=== PATIENT | female | born 1945 | race Asian ===

== ENCOUNTER → 2020-02-22 | Outpatient (CLI) | payer MEDICARE ==
[~2020-02-22] VITALS: Ht 142.2 cm; Wt 40.5 kg
[~2020-02-22] MED LIST: NATURAL IRON65 MG PO
[2020-02-22 12:16] VITALS: BP 101/70; PULSE 100
--- NOTE | 2020-02-22 13:00 | NUR ---
Dr Bright in to talk with pt and daughter. Procedure canceled. Dr Bright states he does not change them until [address] Bright will talk to Dr Singh regarding pt. Dr Bright changed out drainage back and this nurse cleanded and applied new opsites to the bilateral nephrostomy tubes. Attempting to get images from [facility] in [place] [phone]. Also attempting to get images from Dr Bennett office. Number for rad nurses given to daughter to follow up regarding appt time for her mother in the end of February beginning of March.
== END ==
LOC: COL.RAD 11:58
DX: Z46.6 Encounter for fitting and adjustment of urinary device (principal)
CPT/HCPCS: 32174

== ENCOUNTER → 2020-04-05 | Outpatient (CLI) | payer MEDICARE ==
[2020-04-05] VITALS (18 sets, daily range): BP systolic 103–134; BP diastolic 65–79; PULSE 59–69
[~2020-04-05] VITALS: Ht 142.2 cm; Wt 41.5 kg
[~2020-04-05] MED LIST changes: +FOSAMAX 70MG TA70 MG PO; +LIPITOR 10MG10 MG PO; +TENORMIN 2525 MG/TAB PO
--- NOTE | 2020-04-05 12:15 | NUR ---
pt into radiology procedure room. Pt positioned in prone position on table. Monitors applied and O2 on at 2l/nc.
--- NOTE | 2020-04-05 12:50 | NUR ---
Dr Bright into room. Pt prepped and draped. Time out completed. 2434 Procedure started on right side.
--- NOTE | 2020-04-05 13:05 | NUR ---
Dr Bright completed the exchange of the right nephrostomy tube placement.
--- NOTE | 2020-04-05 13:15 | NUR ---
Dr Bright moves to pts left side to exchange left nephrostomy tube.
--- NOTE | 2020-04-05 13:20 | NUR ---
Left side nephrostomy tube exchange started.
--- NOTE | 2020-04-05 13:40 | NUR ---
Left nephrostomy tube exchange completed. Dressings applied bilaterally by Dr Bright.
--- NOTE | 2020-04-05 13:45 | NUR ---
pt transported to holding area in wheelchair. Report to Zora FARMER, care assumed.
--- NOTE | 2020-04-05 15:12 | NUR ---
PORT FLUSHED WITH 10 ML NS AND HEPARIN FLUSHED INSTILLED INTO PORT
== END ==
LOC: COL.RAD 10:00
DX: C67.9 Malignant neoplasm of bladder, unspecified (principal)
CPT/HCPCS: C1729; J3010; Q9967

== ENCOUNTER 2020-04-18 09:00 | Outpatient (RCR) | payer MEDICARE ==
[~2020-04-18] VITALS: Ht 142.2 cm; Wt 39.4 kg
[2020-04-18 09:17] VITALS: BP 129/80; PULSE 110; TEMP 97.4
[2020-04-18 11:50] VITALS: BP 122/78; PULSE 100; TEMP 98
[2020-04-18 12:11] VITALS: BP 119/72; PULSE 94; TEMP 98.4
[2020-04-18 12:26] VITALS: BP 118/95; PULSE 95; TEMP 97.6
[2020-04-18 12:56] VITALS: BP 121/72; PULSE 89; TEMP 98.1
[2020-04-18 13:56] VITALS: BP 135/78; PULSE 97; TEMP 98.7
== END 2020-04-18 14:20 | disposition home or self-care (01) ==
LOC: EUO 09:00 → EDSTATUS 10:30 → EUO 10:30
DX: D50.9 Iron deficiency anemia, unspecified (principal)
CPT/HCPCS: J1644; J7050; P9016

== ENCOUNTER 2020-04-26 05:44 | Inpatient (IN) | payer MEDICARE, OTHER ==
[~2020-04-26] VITALS: Ht 152.4 cm; Wt 36.4 kg
[2020-04-26 06:47] LABS: INR 1.1 (0.8-3.0); PROTHROMBIN TIME 11.8 SECONDS (9.7-12.8)
[2020-04-26 06:49] LABS: MEAN CELL VOLUME 84 fl (80.0-100.0); MEAN CORPUSCULAR HGB CONC 32 g/dl (33.0-37.0); MEAN PLATELET VOLUME 8.3 fl (7.4-10.4); PLATELET COUNT 280 K/mm3 (130-400); RED BLOOD COUNT 3.12 M/mm3 (4.10-5.30); REDCELL DISTRIBUTION WIDTH-CV 18.1 % (11.5-14.5)
[2020-04-26 06:50] LABS: PARTIAL THROMBOPLASTIN TIME 30.7 SECONDS (26.0-37.0)
[2020-04-26 06:51] LABS: ALBUMIN 2.6 gm/dL (3.5-5.0); BILIRUBIN,TOTAL 0.5 mg/dL (0.0-1.0); CALCIUM 8.1 mg/dL (8.4-10.2); CREATININE, serum 0.79 (0.52-1.25); MAGNESIUM 1.9 mg/dL (1.6-2.3); TOTAL PROTEIN 5.8 gm/dL (6.4-8.2)
[2020-04-26 06:58] LABS: HEMATOCRIT 26.3 % (37.0-47.0); HEMOGLOBIN 8.3 g/dl (12.5-16.0); MEAN CORPUSCULAR HEMOGLOBIN 27 pg (27.0-31.0)
[2020-04-26 07:03] LABS: TROPONIN-I 0.018 ng/mL (0.000-0.035)
[2020-04-26 07:05] LABS: COLLECTION METHOD CLEAN CATCH
[2020-04-26 07:21] LABS: THYROID STIMULATING HORMONE 1.63 uIU/mL (0.465-4.680)
[2020-04-26 08:03] LABS: SQUAMOUS EPITHELIAL None Seen /hpf; URINE BACTERIA None Seen /hpf; URINE RBC >50 /hpf
[2020-04-26 08:07] LABS: BAND 27 % (0-10); EOSINOPHIL 1 % (0-4); LYMPHOCYTE 23 % (20.0-51.0); METAMYELOCYTE 1 % (0-0); NEUTROPHILS 48 % (42.0-75.2); PLATELET ESTIMATE NORMAL (NORMAL)
[2020-04-26 08:35] LABS: COLLECTION METHOD IN
[2020-04-26 08:54] LABS: MUCOUS Present /lpf; PH 5 (5-8); SQUAMOUS EPITHELIAL None Seen /hpf; URINE APPEARANCE Turbid; URINE BACTERIA None Seen /hpf; URINE BILIRUBIN Negative (NEGATIVE); URINE BLOOD 2+ (NEGATIVE); URINE GLUCOSE Negative (NEGATIVE); URINE KETONE Negative (NEGATIVE); URINE LEUKOCYTE ESTERASE 3+ (NEGATIVE); URINE NITRATE Negative (NEGATIVE); URINE PROTEIN(semi-quant) 2+ (NEGATIVE); URINE UROBILINOGEN Negative (NEGATIVE)
[2020-04-26 08:55] LABS: URINE APPEARANCE Cloudy; URINE COLOR OTHER
[2020-04-26 08:58] LABS: URINE COLOR Amber
[2020-04-26] MEDS ORDERED: TENORMIN 2525 MG/TAB PO (10:59)
[2020-04-26] MEDS ORDERED: MIRALAX PA17 GM/Dose PO (11:58)
[2020-04-26 16:17] VITALS: BP 100/63; PULSE 84; TEMP 98.1
--- NOTE | 2020-04-26 18:56 | NUR ---
Pt bladder scanned, 319mls in place. Pt straight cathed at this time using sterile technique, 250mls of pulliam/black turbid urine drained. Pt tolerated well. Neph tubes to bilateral sides drained, cloudy yellow urine present. Pt has been eating without issues. IVF infusing to RFA. Daughter did state patient has a PAC if IV sites or blood draws become an issue. POC discussed with patient and her daughter. Report given to night nurse Christina at this time.
--- NOTE | 2020-04-26 19:15 | NUR ---
Report received from MARLENY Leonard. Pt resting in bed, denies needs at this time.
[2020-04-26 20:11] VITALS: BP 93/56; PULSE 92; TEMP 97.5
--- NOTE | 2020-04-26 22:56 | NUR ---
Assessment completed. Pt resting in bed, daughter at bedside. Nephrostomy tubes in place bilaterally, drainage pale yellow and clear. Bowel sounds hypoactive all quadrants. Abdomen soft and flat, no tenderness or guarding. INT to right forearm intact, flushes easily. IV to right forearm intact, NS running at 100 ml/hr. Scabbed over cut on forehead. Pt denies pain or other concerns at this time. Will continue to monitor.
[2020-04-27 00:17] VITALS: BP 86/52; PULSE 92; TEMP 97.7
--- NOTE | 2020-04-27 02:00 | NUR ---
Bladder scan done, 102 ml residual detected.
[2020-04-27 05:02] VITALS: BP 112/64; PULSE 94; TEMP 98
--- NOTE | 2020-04-27 05:22 | NUR ---
Pt has been sleeping in room throughout shift. No complaints of pain or other concerns during the night. Bladder scan completed at 0200, residual 102 ml.
[2020-04-27 06:09] LABS: MEAN CELL VOLUME 86 fl (80.0-100.0); MEAN CORPUSCULAR HGB CONC 31 g/dl (33.0-37.0); MEAN PLATELET VOLUME 8.2 fl (7.4-10.4); PLATELET COUNT 243 K/mm3 (130-400); REDCELL DISTRIBUTION WIDTH-CV 18.5 % (11.5-14.5)
[2020-04-27 06:10] LABS: HEMATOCRIT 26.5 % (37.0-47.0); HEMOGLOBIN 8.3 g/dl (12.5-16.0); MEAN CORPUSCULAR HEMOGLOBIN 27 pg (27.0-31.0)
[2020-04-27 06:23] LABS: ANISOCYTOSIS 1+; BAND 45 % (0-10); EOSINOPHIL 2 % (0-4); LYMPHOCYTE 12 % (20.0-51.0); NEUTROPHILS 36 % (42.0-75.2); PLATELET ESTIMATE NORMAL (NORMAL)
[2020-04-27 06:32] LABS: ALBUMIN 2.2 gm/dL (3.5-5.0); BILIRUBIN,TOTAL 0.2 mg/dL (0.0-1.0); CALCIUM 7.2 mg/dL (8.4-10.2); CREATININE, serum 0.53 (0.52-1.25); MAGNESIUM 1.9 mg/dL (1.6-2.3); PHOSPHOROUS 2.3 mg/dL (2.5-4.5); TOTAL PROTEIN 5.2 gm/dL (6.4-8.2)
[2020-04-27 07:25] VITALS: BP 103/63; PULSE 93; TEMP 97.8
--- NOTE | 2020-04-27 09:01 | NUR ---
Pt assessment complete. Pt is laying in bed upon entry, she is alert but does not speak good japanese. Pt reports pain to her bladder and Left leg, daughter reports chronic pain d/t cancer. Daughter reports patient did not want to eat much for breakfast but did eat a few bites. Had a large watery BM this am, dark in color. Bilateral neph tubes in place, draining cloudy yellow urine. R side leaking, new dressing placed. IVf infusing without complications. No needs at this time. Call light within reach.
--- NOTE | 2020-04-27 09:59 | NUR ---
Initial visit; Patient and daughter were receptive to prayer this morning. Aging Department Supervisor prayed and offered comfort and Blessings.
[2020-04-27 12:13] VITALS: BP 106/74; PULSE 88; TEMP 98
--- NOTE | 2020-04-27 12:22 | NUR ---
Bladder scan showed 211mls.
--- NOTE | 2020-04-27 15:29 | NUR ---
Architectural Practice Manager met with patient and patient's daughter, Gena (ph#[phone]) who is at bedside to discuss discharge planning. Patient lives alone in [place] and recently moved to [place] about a month ago. Gena advised that although patient lives home alone, she checks in on patient 2-3 times per day and stays overnight as needed. Patient's new primary care physician is Dr. Barriga and her first appointment with Dr. Barriga is coming up next week. Patient obtains medications from [facility]. Patient has a cane, walker, and wheelchair at home. At this time, patient has not been able to walk much. Patient receives assistane with bathing and dressing from Gena. NELI reviewed recommendation for post acute rehab. Gena advised that patient sees Dr. Delgado and receives chemotherapy once a week. At this time, the plan is to continue with chemotherapy and Gena advised that they would not be able to put off chemotherapy, even for a short amount of time. Gena was hopeful that Home Health Services could be set up for patient. NELI presented Medicare.gov list of agencies and patient and Gena selected [facility]. NELI also provided information about private duty services. Gena does not think private duty services may be necessary at this time. Gena provided copy of DPOA- which designates her. NELI placed copy in patient's chart. NELI contacted Karla at [facility] and faxed referral. NELI will continue to follow.
[2020-04-27 17:05] VITALS: BP 105/74; PULSE 85; TEMP 97.8
--- NOTE | 2020-04-27 19:00 | NUR ---
Pt had uneventful day. Was up ambulating with PT. Dressings to bilateral neph tubes changed. 18FR jade placed, pulliam cloudy urine present. IVF infusing without complications. Daughter at bedside. Report given to Mitchell Barajas.
[2020-04-27 19:06] VITALS: BP 138/77; PULSE 95; TEMP 98.2
--- NOTE | 2020-04-27 19:08 | NUR ---
Report received from MARLENY Leonard. Pt resting in room with daughter at bedside. Denies needs at this time.
--- NOTE | 2020-04-27 21:31 | NUR ---
Assessment completed. Pt resting in bed, daughter at bedside. Bruise noted on back of pt's head, pt reports due to fall prior to admission. Bilateral nephrostomy tubes in place, output clear yellow. De Leon catheter in place, output dark green and thick. IV to right forearm intact, NS running at 100 ml/hr. INT to right forearm intact, flushes easily. Left chest port intact, deaccessed, dressing clean dry intact. Pt denies pain or other needs at this time. Pt has generalized weakness, hand scrap wheeler equal. No other abnormal findings noted.
[2020-04-28 00:17] VITALS: BP 127/82; PULSE 90; TEMP 98.3
[2020-04-28 04:00] VITALS: BP 113/69; PULSE 89; TEMP 99.1
--- NOTE | 2020-04-28 05:34 | NUR ---
Pt sleeping in room, daughter asleep at bedside throughout shift. Pt has called out to nurse's station a few times requesting nephrostomy tubes be emptied due to feeling heaviness at insertion sites, drainage bags emptied several times throughout night. Small amount of dark green, thick drainage noted from De Leon. IV antibiotics administered as ordered. Pt denies pain.
[2020-04-28 07:34] LABS: MEAN CELL VOLUME 87 fl (80.0-100.0); MEAN CORPUSCULAR HGB CONC 31 g/dl (33.0-37.0); MEAN PLATELET VOLUME 8.3 fl (7.4-10.4); PLATELET COUNT 263 K/mm3 (130-400); RED BLOOD COUNT 2.99 M/mm3 (4.10-5.30); REDCELL DISTRIBUTION WIDTH-CV 18.8 % (11.5-14.5)
[2020-04-28 07:38] LABS: HEMATOCRIT 26.1 % (37.0-47.0); MEAN CORPUSCULAR HEMOGLOBIN 27 pg (27.0-31.0)
[2020-04-28 07:50] LABS: CALCIUM 7.3 mg/dL (8.4-10.2); CREATININE, serum 0.49 (0.52-1.25); POTASSIUM 3.9 mmol/L (3.4-5.0)
[2020-04-28 07:51] VITALS: BP 123/80; PULSE 95; TEMP 98.2
[2020-04-28 09:02] LABS: BAND 23 % (0-10); EOSINOPHIL 1 % (0-4); LYMPHOCYTE 12 % (20.0-51.0); NEUTROPHILS 63 % (42.0-75.2); PLATELET ESTIMATE NORMAL (NORMAL)
[2020-04-28 09:03] LABS: ANISOCYTOSIS 1+; HYPOCHROMIA 1+
--- NOTE | 2020-04-28 09:51 | NUR ---
Gena, pt's daughter, at bedside. Dr. Bucio and team rounded and reviewed pt's status. Discussed antibiotic tx. Goals of care-Maddy Fabian RN present. Chemo Tx being held during stay. Discussed discharge needs.
--- NOTE | 2020-04-28 10:59 | NUR ---
Met with patient and her daughter this morning along with Dr Bucio and treatment team and then Radha LOPEZ and I met with them following. Dr Delgado should see them tomorrow to help them clarify they goals of care. Pt had been recieving chemotherapy weekly with TAXOL/CARBOPLATIN with last dose given April 11. Initial plan of care with MD Mayberry was to treat the bladder cancer with chemotherapy and shrink it so that it could be removed and and an ostomy placed but now with blood clot and with infection, the situation is more complicated. Daughter is very clear that her mother wants to be at home and wants to be comfortable. Goals of care are significant and need clarification, hopefully with help from her oncologist, whether she is desiring ongoing treatment (Trying to get better) or if she is wanting to be kept comfortable without cancer treatment. General information about both was provided and we will wait to hear what they determine their goal to be.
[2020-04-28 12:00] VITALS: BP 116/78; PULSE 92; TEMP 97.4
--- NOTE | 2020-04-28 13:49 | NUR ---
Aesthetics Instructor attended clinical rounds with the team and patient's daughter, Gena is at bedside. Hospitalist to consult Dr. Delgado. Following rounds, SW met with patient, Gena, and Palliative RN Maddy. Goals of care were reviewed and Gena advised they will speak with Dr. Delgado then make decisions on what direction to take. NELI advised Gena that [facility] can accept referral. Maddy also reviewed Hospice options with Gena and patient. Being home is important to patient. Gena is open to home hospice if they decide to stop chemotherapy. Gena will provide in home supports for patient upon discharge. Gena advised she has other supports from family and friends that can provide her a break when needed. SW will continue to follow.
--- NOTE | 2020-04-28 14:21 | NUR ---
Pt assessment completed and charted. Pt laying in bed with daughter at bedside. pt is A&O, daughter assists in communication/language barriers. Pt has IVF infusing to RFA IV w/o complications. Pt has second RFA INT IV, flushes w/o complications. Hep gtt started at 6.5ml/hr. Labs drawn prior. Pt on room air, breathing even and unlabored, denies SOB. Bilateral nephro tubes in place, no drainage noted, dressings CDI. Dr. Bright consulted for advancement/replacement, will complete 04/29. Pulses strong bilaterally. Pt complains of Lt leg pain and pain bilaterally to nephro tubes area, denies need for pain medication. Toby hose applied to LLE. De Leon catheter draining green fluid, irrigated, repositioned, draining pink/red tinged fluid, small clots removed. Pt bladder scanned, 70ml in bladder. No further needs expressed by patient or daughter at this time.
[2020-04-28 16:51] VITALS: BP 133/82; PULSE 93; TEMP 98.2
[2020-04-28 19:03] VITALS: BP 115/84; PULSE 96; TEMP 98.4
--- NOTE | 2020-04-28 19:30 | NUR ---
Pt had uneventful day, will have nephro tube advancement/replacement w/ Ivester in morning, does not need to be NPO. Will stop hep gtt 2 hrs prior to procedure. Hep Xa drawn @ 6hrs, 0.25, hep gtt rate increased to 7.5ml/hr. Nephro tubs drained, cloudy yellow, no drainage noted to dressings, CDI. Report given to MARLENY Garcia. All questions answered. De Leon draining pink/light red tinged urine at this time.
--- NOTE | 2020-04-28 22:53 | NUR ---
PT IN BED WITH HOB ELEVATED TO 60 DEGREE ANGLE, A/O X4, PLEASANT, AND COOPERATIVE. DENIES PAIN OR DISCOMFORT AND REFUSES A NIGHT TIME SNACK. PT HAS CALL LIGHT WITHIN REACH.
[2020-04-29] VITALS (9 sets, daily range): BP systolic 114–140; BP diastolic 68–82; PULSE 84–94; TEMP 97.8–98.7
--- NOTE | 2020-04-29 06:16 | NUR ---
PT RESTED WELL WITH HOB ELEVATED TO 15 DEGREE ANGLE. PT DENIED PAIN OR DISCOMFORT FOR MOST OF THE NIGHT, BUT THIS AM PT STATED THAT RIGHT BUTTOCK HURTED. PT WAS OFFERED TO BE REPOSITION BUT SHE DECLINED THE FIRST FEW TIMES. DID APPLY BARRIER CREAM TO BUTTOCK AND PLACED PT TO LEFT SIDE OFF BUTTOCK. NO OPEN AREAS OR REDNESS NOTED. PT HAS CALL LIGHT WITHIN REACH.
[2020-04-29 07:53] LABS: CALCIUM 7.8 mg/dL (8.4-10.2); CREATININE, serum 0.49 (0.52-1.25)
[2020-04-29 07:57] LABS: POTASSIUM 3.3 mmol/L (3.4-5.0)
--- NOTE | 2020-04-29 08:13 | NUR ---
This nurses orientee MARLENY Thomas providing pt care today.
--- NOTE | 2020-04-29 08:18 | NUR ---
hep gtt stopped at 0715, 2 hrs prior to procedure w/ Dr. Bright to replace/reposition nephro tubes. Pt had two RFA IVs, one removed, catheter was coming out. Other IV site, patent, no issues. No other concerns.
--- NOTE | 2020-04-29 11:03 | NUR ---
Conversation with daughter Gena in room before pt returned from nephrostomy procedure. Gena has looked at a variety of options. She is concerned that chemotherapy is weakening her mother and is not sure how well she will tolerate chemotherapy in future but also not sure she is ready to stop treatment. Pt states that she very much is wanting to go home if at all possible. We are waiting to hear from Dr Delgado about chemotherapy plan, daughter states she has 4 more treatments ahead of her. Her last treatment was April 11. She does agree to continue with antibiotics whichever way she goes and will start oral anticogulant as well to prevent further clots. She is aware that her risk of bleeding will increase with anticoagulation.Patient and her daughter will continue discussions to help clarify their goals of care. Support provided.
--- NOTE | 2020-04-29 11:18 | NUR ---
Pt back from procedure, tolerated well. Nephro tubes not replaced. Dressing CDI. Hep gtt dc'd, eliquis started. Toby anaya on bilateral LE. No further needs at this time.
--- NOTE | 2020-04-29 11:21 | NUR ---
Assessment charted. Pt reports general "aching feeling" all over, denies pain in the left lower extremity but does report weakness. MARILEE hose are on. Heart and Lung sounds are normal. Pt denies any chest pain or shortness of breath. IV site on right forearm was removed. Other R forearm IV still in place and flushes easily. repositioned with pillows, pt resting comfortably.
--- NOTE | 2020-04-29 12:08 | NUR ---
I recieved a call from Dr Delgado's nurse that he had seen the patient this morning and that their conversation had been toward continuing chemotherapy after antibiotics are completed. Dr Delgado's nurse also relayed that he planned on talking with her daughter Gena by phone as well. At this time, they are looking at going home with home health services but are glad to know what options are out there and available if and when they choose to use them.
--- NOTE | 2020-04-29 13:51 | NUR ---
Well Blower attended clinical rounds with the team and patient's daughter, Gena would like to follow up with Dr. Delgado before making a decision on discharge planning. SW followed up with patient and Gena who advise that after speaking with Dr. Delgado, patient has decided to continue to chemotherapy. Plan is to return home upon discharge with home health services and continue with chemotherapy. NELI contacted Karla at [facility] to provide update. NELI collaborated with Maddy Palliative RN about the above information. NELI will continue to follow.
--- NOTE | 2020-04-29 22:00 | NUR ---
Pt assessment completed, charted, alert, oriented, roomair. Meds provided as per MAR, tolerated well. No N/V/D, tingling, numbness, pain, SOA as per pt. Helped to settled on bed, applied cream on her back, calll light on reach. No further needs at this time.
[2020-04-30 03:29] VITALS: BP 119/63; PULSE 84; TEMP 98.8
--- NOTE | 2020-04-30 06:43 | NUR ---
Pt had an uneventful night, slept on and off through out the night. Morning meds provided as per NOV. No further needs at this time.
[2020-04-30 06:56] LABS: BASO % 0.2 % (0.0-2.0); EOS # 0.1 (0.0-0.7); EOS % 2.6 % (0-4.0); GRAN # 2.6 (1.4-6.5); GRAN % 53.2 % (42.2-75.2); LYMPH # 1.5 (1.2-3.4); LYMPH % 29.6 % (20.0-51.0); MEAN CELL VOLUME 87 fl (80.0-100.0); MEAN CORPUSCULAR HGB CONC 31 g/dl (33.0-37.0); MEAN PLATELET VOLUME 8.8 fl (7.4-10.4); MONO # 0.7 (0.1-0.6); MONO % 13.4 % (1.7-9.3); PLATELET COUNT 283 K/mm3 (130-400); RED BLOOD COUNT 3.06 M/mm3 (4.10-5.30); REDCELL DISTRIBUTION WIDTH-CV 18.5 % (11.5-14.5)
[2020-04-30 07:19] LABS: ALBUMIN 2.4 gm/dL (3.5-5.0); BILIRUBIN,TOTAL 0.4 mg/dL (0.0-1.0); CREATININE, serum 0.48 (0.52-1.25); MAGNESIUM 1.8 mg/dL (1.6-2.3); PHOSPHOROUS 3.4 mg/dL (2.5-4.5); POTASSIUM 4.1 mmol/L (3.4-5.0); TOTAL PROTEIN 5.5 gm/dL (6.4-8.2)
[2020-04-30 07:38] LABS: HEMATOCRIT 26.5 % (37.0-47.0); HEMOGLOBIN 8.2 g/dl (12.5-16.0); MEAN CORPUSCULAR HEMOGLOBIN 27 pg (27.0-31.0)
[2020-04-30 07:42] VITALS: BP 118/72; PULSE 75; TEMP 98.1
--- NOTE | 2020-04-30 08:00 | NUR ---
PT DENIED PAIN OR DISCOMFORT, NEPHROSTOMY EMPTIED BEFORE BEGINNING OF SHIFT, CEBALLOS OUTPUT MINIMAL AND RED TINTED IN COLOR. PT DENIES PAIN OR DISCOMFORT, PT PLEASANT, PT REQUESTED COFFEE AND IT WAS BROUGHT IN, VITALS REVIEWED, MEDICATIONS GIVEN, ASSESSMENT PERFORMED. NO OTHER NEEDS AT THIS TIME.
[2020-04-30] MEDS ORDERED: OMNICEF 300MG300 MG PO (11:15)
[2020-04-30] MEDS ORDERED: ELIQUIS 5MG PO (11:16)
[2020-04-30] MEDS ORDERED: ULTRAM 50MG TAB50 MG PO (11:18)
--- NOTE | 2020-04-30 11:25 | NUR ---
NEPHROSTOMIES EMPTIED, INFORMED HER OF DISCHARGE PAPERWORK, NO OTHER NEEDS AT THIS TIME.
--- NOTE | 2020-04-30 12:10 | NUR ---
EDUCATED PT'S DAUGHTER ON CEBALLOS CARE, PROVIDED DISCHARGE EDUCATION, DISCONTINUED IV. PT DAUGHTER GATHERING BELONGINGS NO OTHER NEEDS AT THIS TIME.
--- NOTE | 2020-04-30 12:26 | NUR ---
PT TAKEN OUT VIA WHEELCHAIR WITH PT BELONGINGS. PT HAS PT FOLDER WITH DISCHARGE PAPERWORK AND PERSCRIPTIONS. NO OTHER NEEDS AT THIS TIME.
--- NOTE | 2020-04-30 13:32 | NUR ---
SW update, sent fax of Dc orders to [facility] at [phone]. Nothing follows.
== END 2020-04-30 12:30 | disposition home health service (06) | DRG 699 ==
LOC: COL.ER 05:44 → MEDICAL 08:31
PROVIDERS: Emergency Medicine; Physician Assistant; ADMIT Family Medicine
PROC: 0T25X0Z Change Drainage Device in Kidney, External Approach (ICD-10-PCS; principal; 2020-04-29)
DX: T83.512A Infection and inflammatory reaction due to nephrostomy catheter, initial encounter (principal); N39.0 Urinary tract infection, site not specified; I82.412 Acute embolism and thrombosis of left femoral vein; E87.1 Hypo-osmolality and hyponatremia; M62.82 Rhabdomyolysis; C67.9 Malignant neoplasm of bladder, unspecified; E86.0 Dehydration; E87.6 Hypokalemia; E78.5 Hyperlipidemia, unspecified; Z88.6 Allergy status to analgesic agent; Z87.891 Personal history of nicotine dependence
CPT/HCPCS: 99232-AI; 99233-AI; 99239; G0378; J0692; J0696; J1644; J3480; J7030; Q9967